=== PATIENT | male | born 1930 | race Caucasian/White ===

== ENCOUNTER 2016-11-30 13:29 | Emergency (ER) | payer MEDICARE ==
[2016-11-30] MEDS ORDERED: Adacel Vial IM ONE ×2 (13:50→13:56)
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
[2016-11-30] MEDS ORDERED: XYLOCAINE 1% HCL 20 ML MDV ONE (14:49)
[2016-11-30 15:16] VITALS: BP 154/87; PULSE 78; O2SAT 100
== END 2016-11-30 15:16 | disposition home or self-care (01) ==
LOC: ED 13:29
DX: S51.812A Laceration without foreign body of left forearm, initial encounter (principal); S22.079A Unspecified fracture of T9-T10 vertebra, initial encounter for closed fracture; S40.012A Contusion of left shoulder, initial encounter; S60.221A Contusion of right hand, initial encounter; V53.5XXA Driver of pick-up truck or van injured in collision with car, pick-up truck or van in traffic accident, initial encounter; E78.00 Pure hypercholesterolemia, unspecified; E03.9 Hypothyroidism, unspecified; Z79.899 Other long term (current) drug therapy
CPT/HCPCS: 71020; 73030; 73090; 73130; 90471; 90715; 99284